=== PATIENT | male | born 2000 | race Two or more races ===

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

== ENCOUNTER 2021-09-01 12:01 | Emergency (ER) | payer MEDICAID | END 2021-09-01 12:38 | disposition left against medical advice (07) | LOC: DL.ED 12:01 | DX: Z53.21 Procedure and treatment not carried out due to patient leaving prior to being seen by health care provider (principal) ==

== ENCOUNTER 2022-02-18 01:52 | Emergency (ER) | payer MEDICAID ==
[2022-02-18] MEDS ORDERED: MVI, Adult with Vitamin K 10 ML, Folic Acid 1 MG, Thiamine 100 MG in Lactated Ringers 1... IV ONE ×4 (01:58)
[2022-02-18 02:02] VITALS: BP 115/66; PULSE 64
[2022-02-18] MEDS ORDERED: Sodium Chloride 0.9% 1,000 ML IV ONE (02:33)
[2022-02-18 02:43] LABS: ANION GAP 15.1 mEq/L (7-13); CHLORIDE,CL 104 mmol/L (98-107); SODIUM,NA 141 mmol/L (136-145)
[2022-02-18 02:46] LABS: ESTIMATED GFR 115 mL/min (>=60)
[2022-02-18 04:02] LABS: AMPHETAMINES,URINE NEGATIVE (NEGATIVE); BARBITURATES,URINE NEGATIVE (NEGATIVE); BENZODIAZEPINE,URINE NEGATIVE (NEGATIVE); MDMA (ECSTASY), URINE NEGATIVE (NEGATIVE); METHADONE,URINE NEGATIVE (NEGATIVE); METHAMPHETAMINES,URINE NEGATIVE (NEGATIVE); OPIATES,URINE NEGATIVE (NEGATIVE); OXYCODONE,URINE NEGATIVE (NEGATIVE); PHENCYCLIDINE,URINE NEGATIVE (NEGATIVE); TCA,URINE NEGATIVE (NEGATIVE)
== END 2022-02-18 04:04 | disposition home or self-care (01) ==
LOC: DL.ED 01:52
DX: F10.10 Alcohol abuse, uncomplicated (principal)
CPT/HCPCS: 36415; 80053; 80305-QW; 80307; 81003; 82150; 83690; 85025; 96361; 96365; 99282; 99284-25; J3411; J3490; J7030; J7120

== ENCOUNTER 2022-07-20 12:01 | Emergency (ER) | payer MEDICAID ==
[2022-07-20 12:25] VITALS: BP 104/65; PULSE 94
[2022-07-20] MEDS ORDERED: Iopamidol 612 MG/ML 100 ML Bottle IVPUSH ONE (13:02)
[2022-07-20] MEDS ORDERED: Sodium Chloride 0.9% 10 ML Syringe FLUSH PRN (13:02)
== END 2022-07-20 14:07 | disposition home or self-care (01) ==
LOC: DL.ED 12:01
DX: M54.14 Radiculopathy, thoracic region (principal); F17.210 Nicotine dependence, cigarettes, uncomplicated
CPT/HCPCS: 71046; 71260; 72070; 99283; 99285; Q9967

== ENCOUNTER 2024-11-04 06:35 | Emergency (ER) | payer MEDICAID, OTHER ==
[2024-11-04] MEDS: Sodium Chloride 0.9% 1,000 ML IV ONE (07:17)
[2024-11-04] MEDS: Ondansetron 4 MG/2 ML SDV IVPUSH ONE (07:23)
[2024-11-04 07:24] LABS: BASOPHILS PERCENT AUTO 1.4 % (0.0-1.0); EOSINOPHILS PERCENT AUTO 5.7 % (1.0-3.0); HEMATOCRIT 43.8 % (40.0-54.0); HEMOGLOBIN 15.5 g/dL (14.0-18.0); LYMPHOCYTES PERCENT AUTO 25.9 % (20.5-50.1); MEAN CORPUSCULAR HEMOGLOBIN 29.7 pg (27.0-34.0); MEAN CORPUSCULAR HGB CONC 35.4 g/dL (33.0-35.0); MEAN CORPUSCULAR VOLUME 83.9 fL (80-100); MONOCYTES PERCENT AUTO 8.6 % (2-8); NEUTROPHILS PERCENT AUTO 58.4 % (42.2-75.2); PLATELET COUNT,PLT 288 10^3/uL (150-450); RED BLOOD CELL COUNT 5.22 10^6/uL (4.6-6.2); WHITE BLOOD CELL COUNT,WBC 7.3 10^3/uL (5.0-10.0)
[2024-11-04] MEDS: Pantoprazole 40 MG Vial IVPUSH ONE (07:25)
[2024-11-04] MEDS: HYDROmorphone 0.5 MG/0.5 ML Syringe IVPUSH ONE ×2 (07:32→08:06)
[2024-11-04 07:38] LABS: A/G RATIO 1.2; ALBUMIN 4.3 g/dL (3.4-5.0); ANION GAP 16.9 mEq/L (7-13); BILIRUBIN TOTAL 0.5 mg/dL (0.2-1.0); BUN/CREATININE RATIO 16.7 (No establ ref range); CALCIUM 9.2 mg/dL (8.5-10.1); CREATININE 0.96 mg/dL (0.70-1.30); EST CRCL DRUG DOSING (CG) 123.28 mL/min; POTASSIUM,K 3.9 mmol/L (3.5-5.1)
[2024-11-04] MEDS: Iopamidol 755 Mg/ML 100 ML Bottle IVPUSH ONE (08:04)
[2024-11-04 08:18] VITALS: PULSE 80
[2024-11-04 09:17] VITALS: BP 117/68
== END 2024-11-04 09:27 | disposition home or self-care (01) ==
LOC: DL.ED 06:35
DX: R10.12 Left upper quadrant pain (principal); R11.2 Nausea with vomiting, unspecified; Z86.16 Personal history of COVID-19
CPT/HCPCS: 36415; 74177; 80053; 83690; 85025; 96361; 96374; 96375; 96376; 99284; J2405; J2470; J7030; Q9967

== ENCOUNTER 2024-11-08 05:35 | Emergency (ER) | payer OTHER ==
[2024-11-08] MEDS: Pantoprazole 40 MG Vial IVPUSH ONE (06:15)
[2024-11-08] MEDS: Ondansetron 4 MG/2 ML SDV IVPUSH ONE (06:15)
[2024-11-08] MEDS: GI Cocktail Oral Solution 30 ML PO ONE (06:15)
[2024-11-08 06:18] LABS: EOSINOPHILS PERCENT AUTO 11.1 % (1.0-3.0); HEMATOCRIT 38.5 % (40.0-54.0); HEMOGLOBIN 13.7 g/dL (14.0-18.0); MEAN CORPUSCULAR HEMOGLOBIN 30.3 pg (27.0-34.0); MEAN CORPUSCULAR HGB CONC 35.6 g/dL (33.0-35.0); MEAN CORPUSCULAR VOLUME 85.2 fL (80-100); NEUTROPHILS PERCENT AUTO 49.9 % (42.2-75.2); PLATELET COUNT,PLT 238 10^3/uL (150-450); RED BLOOD CELL COUNT 4.52 10^6/uL (4.6-6.2); WHITE BLOOD CELL COUNT,WBC 5.8 10^3/uL (5.0-10.0)
[2024-11-08] MEDS: Sodium Chloride 0.9% 1,000 ML IV ONE (06:18)
[2024-11-08 06:36] LABS: A/G RATIO 1.1; ALBUMIN 3.6 g/dL (3.4-5.0); ANION GAP 11.8 mEq/L (7-13); BILIRUBIN TOTAL 0.3 mg/dL (0.2-1.0); BUN/CREATININE RATIO 12.1 (No establ ref range); CREATININE 0.99 mg/dL (0.70-1.30); EST CRCL DRUG DOSING (CG) 119.39 mL/min; MAGNESIUM 2.1 mg/dL (1.8-2.4); POTASSIUM,K 3.8 mmol/L (3.5-5.1); PROTEIN TOTAL,TP 6.8 g/dL (6.4-8.2)
[2024-11-08 07:02] VITALS: BP 133/82; PULSE 77
[2024-11-08] MEDS: LORazepam 2 MG/ML SDV IVPUSH ONE (07:13)
[2024-11-08 07:14] LABS: APPEARANCE,URINE CLEAR (CLEAR); BILIRUBIN,URINE NEGATIVE (NEGATIVE); COLOR,URINE YELLOW (YELLOW); GLUCOSE,URINE NEGATIVE (NEGATIVE); KETONES,URINE NEGATIVE (NEGATIVE); LEUKOCYTE ESTERASE,URINE TRACE (NEGATIVE); NITRITE,URINE NEGATIVE (NEGATIVE); OCCULT BLOOD,URINE NEGATIVE (NEGATIVE); PROTEIN,URINE NEGATIVE (NEGATIVE); UROBILINOGEN,URINE 0.2 mg/dL (0.2-1.0)
[2024-11-08 07:18] LABS: AMPHETAMINES,URINE NEGATIVE (NEGATIVE); BARBITURATES,URINE NEGATIVE (NEGATIVE); BENZODIAZEPINE,URINE NEGATIVE (NEGATIVE); MDMA (ECSTASY), URINE NEGATIVE (NEGATIVE); METHADONE,URINE NEGATIVE (NEGATIVE); METHAMPHETAMINES,URINE NEGATIVE (NEGATIVE); OPIATES,URINE NEGATIVE (NEGATIVE); OXYCODONE,URINE NEGATIVE (NEGATIVE); PHENCYCLIDINE,URINE NEGATIVE (NEGATIVE); TCA,URINE NEGATIVE (NEGATIVE)
[2024-11-08 07:29] LABS: BACTERIA,URINE RARE /HPF (0-FEW/HPF); EPITHELIAL CELLS,URINE NOT SEEN /HPF (NOT SEEN); RBC,URINE NOT SEEN /HPF (0-5); WBC,URINE 0-5 /HPF (0-5/HPF)
== END 2024-11-08 07:20 | disposition home or self-care (01) ==
LOC: DL.ED 05:35
DX: K21.9 Gastro-esophageal reflux disease without esophagitis (principal); Z86.16 Personal history of COVID-19
CPT/HCPCS: 36415; 80053; 80305; 81001; 83605; 83735; 85025; 87086; 96361; 96374; 96375; 99283; 99284; A9270; J2060; J2405; J2470; J7030